=== PATIENT | female | born 1980 | race Two or more races ===

== ENCOUNTER 2017-08-23 10:22 | Day surgery (SDC) | payer BC ==
[~2017-08-23 10:22] MED LIST: Lactated Ringers 1,000 ML IV SCH
[2017-08-23] MEDS ORDERED: Propofol 200 MG/20 ML SDV ONE ×3 (11:12→12:25)
[2017-08-23] MEDS ORDERED: fentaNYL 100 MCG/2 ML SDV ONE (11:12)
--- NOTE | 2017-08-24 07:50 | OR ---
PREOPERATIVE DIAGNOSIS: Epigastric and left upper quadrant pain. POSTOPERATIVE DIAGNOSIS: Epigastric and left upper quadrant pain. PROCEDURES PERFORMED: 1. EGD. 2. Colonoscopy. INDICATIONS: The patient is a 37-year-old female with a history of upper abdominal pain and a course of diarrhea that lasted a couple of weeks back in June. She presents for the above. DESCRIPTION OF SURGERY: Procedure was done in the endoscopy suite. Sedation was given per Anesthesia. She was first placed in the supine position. The scope was introduced into the pharynx across the esophagus into the stomach through the pylorus into the first and second portions of the duodenum. The first portion and second portions of the duodenum were normal. The scope was slowly withdrawn and retroflexed. The patient had a moderate-sized hiatal hernia present with mild inflammatory changes. The scope was then withdrawn. The remainder of the way now was normal. Final diagnosis was hiatal hernia with mild inflammatory changes. Next, attention was turned to the colonoscopy. She was placed in the left lateral position. First, the rectal exam was done and was normal. Scope was introduced into the rectum, slowly advanced to the rectum, sigmoid, descending, transverse, and the ascending colon until the cecum was reached. Upon reaching the cecum, scope was withdrawn, looking at all mucosal surfaces on the way out. No mucosal abnormalities, lesions, or polyps were noted. Final diagnosis was normal colonoscopy. BKD: 08/23/2017 12:47:39 MODL: 08/23/2017 19:15:44 /[id number]
== END 2017-08-23 14:10 | disposition home or self-care (01) ==
LOC: VM.SDS 10:22
PROVIDERS: ATTEND Surgery
DX: K92.89 Other specified diseases of the digestive system (principal); K44.9 Diaphragmatic hernia without obstruction or gangrene
CPT/HCPCS: 81025; J2704; J3010; J7120

== ENCOUNTER 2021-11-23 21:46 | Observation (INO) | payer OTHER ==
[2021-11-23] MEDS ORDERED: Sodium Chloride 0.9% 10 ML Syringe FLUSH PRN (22:00)
[2021-11-23 22:44] LABS: PTT,PARTIAL THROMBOPLSTIN TIME 25.9 SEC (20.5-30.9)
[2021-11-23 22:55] LABS: ACETAMINOPHEN 15 ug/ml (10-30); CHLORIDE,CL 100 mmol/L (98-107); SODIUM,NA 135 mmol/L (136-145)
[2021-11-23 22:56] LABS: ANION GAP 13.1 mmol/L (5-15)
[2021-11-23] MEDS ORDERED: Sodium Chloride 0.9% 1,000 ML IV SCH (23:00)
[2021-11-23] MEDS ORDERED: Magnesium Sulfate/Water 2 GM in Premix Bag 1 BAG IV ONE (23:00)
[2021-11-23] MEDS ORDERED: NS with KCl 40mEq 1,000 ML IV SCH (23:00)
[2021-11-24] MEDS ORDERED: Sodium Chloride 0.9% 1,000 ML IV SCH (02:45)
[2021-11-24 07:04] LABS: BARBITURATE SCREEN,URINE NEGATIVE (NEGATIVE); BENZODIAZEPINES SCREEN,URINE NEGATIVE (NEGATIVE)
[2021-11-24 07:05] LABS: BUPRENORPHINE SCREEN,URINE NEGATIVE (NEGATIVE); METHAMPHETAMINE SCREEN, URINE NEGATIVE (NEGATIVE); THC SCREEN,URINE 50 NG/ML NEGATIVE (NEGATIVE)
[2021-11-24 09:24] LABS: CHLORIDE,CL 102 mmol/L (98-107); SODIUM,NA 136 mmol/L (136-145)
[2021-11-24 09:25] LABS: ANION GAP 11.5 mmol/L (5-15)
[2021-11-24] MEDS ORDERED: cefTRIAXone 2 GM Vial IVPUSH ONE (09:45)
== END 2021-11-24 12:35 | disposition home or self-care (01) ==
LOC: VM.ED 21:46 → VM.MS 22:57
PROVIDERS: ADMIT Physician Assistant; ATTEND Physician Assistant
DX: T43.222A Poisoning by selective serotonin reuptake inhibitors, intentional self-harm, initial encounter (principal); Z79.899 Other long term (current) drug therapy; Z98.890 Other specified postprocedural states; F32.A Depression, unspecified; N39.0 Urinary tract infection, site not specified
CPT/HCPCS: 36415; 80053; 80143; 80179; 80305-QW; 80307; 81001; 81003; 81025; 83735; 84100; 84443; 85025; 85610; 85730; 86140; 87086; 93005; 93010; 96365; 96366; 96375; 99217; 99220; 99285-25; G0378; J0696; J3475; J3480; J7030

== ENCOUNTER 2024-11-27 19:38 | Emergency (ER) | payer OTHER | END 2024-11-27 21:10 | disposition home or self-care (01) | LOC: VM.ED 19:38 | DX: I10 Essential (primary) hypertension (principal); Z79.899 Other long term (current) drug therapy | CPT/HCPCS: 99283 ==